=== PATIENT | male | born 1955 | race Caucasian/White ===

== ENCOUNTER 2018-10-31 22:14 | Observation (INO) ==
[2018-10-31 22:39] LABS: Basophils % 0.7 %; Eosinophils # 0.3 K/mcL (0.0-0.6); Eosinophils % 4.7 %; Hematocrit 42.4 % (37.5-50.1); Hemoglobin 15.2 g/dL (12.9-16.9); Immature Granulocytes % 0.2 % (0-4); Lymphocytes # 2.3 K/mcL (0.6-4.6); Lymphocytes % 41.1 %; Mean Corpuscular HGB Conc 35.8 g/dL (31.6-35.5); Mean Corpuscular Hemoglobin 33.3 pg (28.0-33.3); Mean Corpuscular Volume 92.8 fL (83.0-100.0); Mean Platelet Volume 10.2 fL (9.4-12.4); Monocytes # 0.6 K/mcL (0.0-1.3); Monocytes % 10.8 %; Neutrophils # 2.4 K/mcL (1.6-8.9); Platelet Count 152 K/mcL (140-400); Red Blood Count 4.57 M/mcL (4.19-5.50); Red Cell Distribution Width 12.3 % (11.5-14.5); Segmented Neutrophils % 42.5 %; White Blood Count 5.6 K/mcL (4.3-11.1)
[2018-10-31 22:46] LABS: INR 1.1; Prothrombin Time 12.6 Seconds (9.4-12.1)
[2018-10-31 23:04] LABS: BUN/Creatinine Ratio 12 (6-26); Blood Urea Nitrogen 11 mg/dL (8-23); Calcium 9.1 mg/dL (8.6-10.3); Carbon Dioxide 24 mEq/L (23-29); Chloride 104 mEq/L (98-107); Glucose 181 mg/dL (70-105); Osmolality,Calculated 288 (280-300); Potassium 3.5 mEq/L (3.5-5.1); Sodium 137 mEq/L (136-145); Troponin I < 0.03 ng/mL (< 0.04); eGFR For African Americans > 60 (> 60); eGFR For Non-African Americans > 60 (> 60)
--- NOTE | 2018-10-31 23:16 | Emergency Department Note ---
Disposition Clinical Impression: Right sided weakness, Arm paresthesia, right, Paresthesia of right leg Fall Qualifiers: Encounter type: initial encounter Qualified Code(s): W19.XXXA - Unspecified fall, initial encounter Disposition: Admitted As Inpatient Referrals: Max Sun MD [Primary Care Provider] - Forms: ED Satisfaction Letter Time of Disposition: 00:43 General Adult HPI - General Chief complaint: ED Neuro Symptoms/Deficit Stated complaint: LUE Pain, R Side Numb/Tingles, HX CVA Time Seen by Provider: 10/31/18 22:20 Source: patient Mode of arrival: ambulatory Limitations: no limitations Nursing Notes Reviewed: Yes Vital Signs Reviewed: Yes - History of Present Illness HPI Narrative: 63M with PMHx of CVA, HTN, HLD and DM presents emergency Department with left u pper extremity pain and worsening right-sided deficits. Patient states that he had a stroke in 2006 which left him with decreased sensation and motor skills on the entire right side of his body. He states that he occasionally has flares where the sensation and the weakness seemed to worsen. His [id number] and he has been having even worse symptoms since then. He has had left upper extremity pain for the last 3 weeks on and off without known injury. Patient states today his "caught him" with worsening sensation and movement and forced him to come into the emergency department. He currently denies chest pain or shortness of breath, abdominal pain, nausea and vomiting. The patient takes a full strength aspirin daily. Pain Scale: 5 - Related Data Home Medications Medication Instructions Recorded Confirmed Aspirin Buffered 325 mg Tab 09/28/15 Levothyroxine Sodium 09/28/15 Lisinopril 09/28/15 09/28/15 Metformin 09/28/15 Simvastatin 09/28/15 09/28/15 Insulin NPH Human Isophane 50 units SQ BID 10/31/18 10/31/18 [Novolin N] Insulin Regular, Human [Novolin R] 10 units SQ TID 10/31/18 10/31/18 Allergies Allergy/AdvReac Type Severity Reaction Status Date / Time Latex, Natural Rubber Allergy See Verified 10/31/18 23:19 Comments promethazine Allergy Hives Verified 10/31/18 23:19 Sulfa (Sulfonamide Allergy See Verified 10/31/18 23:19 Antibiotics) Comments sulfamethoxazole Allergy See Verified 10/31/18 23:19 [From Bactrim] Comments trimethoprim [From Bactrim] Allergy See Verified 10/31/18 23:19 Comments All systems ED: reviewed and negative except as stated. Review of Systems: As Per HPI Constitutional: Reports: weakness. Denies: fever, chills Eyes: Denies: vision change Cardiovascular: Denies: chest pain, palpitations, dyspnea on exertion Respiratory: Denies: cough, dyspnea, wheezes Gastrointestinal: Denies: abdominal pain, nausea, vomiting Musculoskeletal: Reports: arthralgia (left shoulder pain). Denies: back pain, neck pain Neurological: Reports: weakness, paresthesias. Denies: headache Endocrine: Denies: fatigue Past Medical History - Past Medical History Attestation: Yes The following information was validated with the patient. Source: patient Medical history: Reports: arthritis, CVA, diabetes, hyperlipidemia, hyper tension, TIA Surgical history: Reports: appendectomy, cholecystectomy, herniorrhaphy Psychiatric history: Reports: no psych history - Social History Smoking Status: Never smoker Smokeless Tobacco Status: No Alcohol use: Reports: none Drug use: Reports: none Physical Exam - General Limitations: no limitations General appearance: alert, anxious - Head Head exam: atraumatic, normocephalic - Eye Eye exam: Present: normal appearance, PERRL, EOMI - Chest Chest inspection: Present: normal inspection. Absent: tenderness, rash - Respiratory Respiratory exam: Present: normal lung sounds bilaterally. Absent: wheezes - Cardiovascular Cardiovascular exam: Present: regular rate, normal rhythm - Abdominal Exam Abdominal exam: Present: soft, Non-Tender. Absent: distention, guarding, rebound, rigidity - Neurological Exam Neurological exam: Present: alert, oriented X3, CN II-XII intact, motor sensory deficit (see NIHSS for further detail) - Psychiatric Psychiatric exam: Present: normal affect, normal mood - Skin Skin exam: Present: warm, dry, intact Course Vital Signs Temperature 98.4 F 10/31/18 22:22 Pulse Rate 75 10/31/18 22:22 Respiratory Rate 15 10/31/18 22:22 Blood Pressure 166/97 10/31/18 22:22 O2 Sat by Pulse Oximetry 100 10/31/18 22:22 Temperature 98.4 F 10/31/18 22:22 Pulse Rate 77 11/01/18 00:00 Respiratory Rate 20 11/01/18 00:00 Blood Pressure 144/94 11/01/18 00:00 O2 Sat by Pulse Oximetry 95 11/01/18 00:00 Oxygen Delivery Oxygen Delivery Room Air Medical Decision Making - MDM Narrative Medical decision making narrative: Patient presents with left upper extremity pain and worsening right-sided weakness and sensory changes that have been going on for the past week. We will obtain EKG, basic labs, troponin and do CT imaging of the patient's head. 0001 - patient's EKG was unremarkable. Laboratory did not demonstrate any significant abnormalities. Head CT and chest x-ray did not show any acute ch anges. Patient's family is at bedside and they are concerned as the patient has had significant worsening of his right lower extremity and they have seen him dragging his right leg over the past couple of days. Today the patient fell at the . He does not normally have difficulties with walking and the sons concerned if the patient goes home and falls that his mother will not be able to take care of the patient. Patient also admits to having severely worsening headaches over the past month with a current headache on the right side that he rates an 8 out of 10. Due to the patient's worsening symptoms we will plan on admission for further stroke workup and PT/OT to help with his walking. Patient and family are agreeable with admission at this time. Hospitalist has been paged. 004 - patient has been except hospital by Dr. Ahmadi - Medical Records Medical records reviewed: Yes I reviewed the patient's medical records. - Lab Data Lab results reviewed: Yes I reviewed the patient's lab results. Result diagrams: 10/31/18 22:32 10/31/18 22:32 Lab Results 10/31/18 10/31/18 10/31/18 Range/Units 22:20 22:32 22:32 WBC 5.6 (4.3-11.1) K/mcL RBC 4.57 (4.19-5.50) M/mcL Hgb 15.2 (12.9-16.9) g/dL Hct 42.4 (37.5-50.1) % MCV 92.8 (83.0-100.0) fL MCH 33.3 (28.0-33.3) pg MCHC 35.8 H (31.6-35.5) g/dL RDW 12.3 (11.5-14.5) % Plt Count 152 (140-400) K/mcL MPV 10.2 (9.4-12.4) fL Immature Gran % 0.2 (0-4) % Seg Neutrophils % 42.5 % Lymphocytes % 41.1 % Monocytes % 10.8 % Eosinophils % 4.7 % Basophils % 0.7 % Neutrophils # 2.4 (1.6-8.9) K/mcL Lymphocytes # 2.3 (0.6-4.6) K/mcL Monocytes # 0.6 (0.0-1.3) K/mcL Eosinophils # 0.3 (0.0-0.6) K/mcL Basophils # 0.0 (0.0-0.2) K/mcL PT 12.6 H (9.4-12.1) Seconds INR 1.1 Sodium (136-145) mEq/L Potassium (3.5-5.1) mEq/L Chloride (98-107) mEq/L Carbon Dioxide (23-29) mEq/L BUN (8-23) mg/dL Creatinine (0.70-1.30) mg/dL Est GFR ( Amer) (> 60) Est GFR (Non-Af Amer) (> 60) BUN/Creatinine Ratio (6-26) Glucose (70-105) mg/dL POC Glucose 186 H (70-99) mg/dL Calculated Osmolality (280-300) Calcium (8.6-10.3) mg/dL Troponin I (< 0.04) ng/mL 10/31/18 Range/Units 22:32 WBC (4.3-11.1) K/mcL RBC (4.19-5.50) M/mcL Hgb (12.9-16.9) g/dL Hct (37.5-50.1) % MCV (83.0-100.0) fL MCH (28.0-33.3) pg MCHC (31.6-35.5) g/dL RDW (11.5-14.5) % Plt Count (140-400) K/mcL MPV (9.4-12.4) fL Immature Gran % (0-4) % Seg Neutrophils % % Lymphocytes % % Monocytes % % Eosinophils % % Basophils % % Neutrophils # (1.6-8.9) K/mcL Lymphocytes # (0.6-4.6) K/mcL Monocytes # (0.0-1.3) K/mcL Eosinophils # (0.0-0.6) K/mcL Basophils # (0.0-0.2) K/mcL PT (9.4-12.1) Seconds INR Sodium 137 (136-145) mEq/L Potassium 3.5 (3.5-5.1) mEq/L Chloride 104 (98-107) mEq/L Carbon Dioxide 24 (23-29) mEq/L BUN 11 (8-23) mg/dL Creatinine 0.92 (0.70-1.30) mg/dL Est GFR ( Amer) > 60 (> 60) Est GFR (Non-Af Amer) > 60 (> 60) BUN/Creatinine Ratio 12 (6-26) Glucose 181 H (70-105) mg/dL POC Glucose (70-99) mg/dL Calculated Osmolality 288 (280-300) Calcium 9.1 (8.6-10.3) mg/dL Troponin I < 0.03 (< 0.04) ng/mL - Radiology Data Radiology results reviewed: Yes I reviewed the patient's radiology results. - EKG Data EKG #1 EKG attestation: Yes I reviewed and interpreted this EKG. EKG results narrative: EKG obtained at 2224 on 10/31/2018 Heart rate 81 bpm, MD interval 96, QRS duration 98, QT 385, QTc 447 Sinus rhythm without any ST segment elevations or depressions. Flattening of the T wave in the lateral leads and aVL. These findings are unchanged from previous EKG dated 08/16/2015. NIH Stroke Scale - Level of Consciousness LOC: Alert - LOC Questions LOC Questions: Answers both correctly - LOC Commands LOC Commands: Performs both correctly - Best Gaze Best Gaze: Normal - Visual Visual: No visual loss - Facial Palsy Facial Palsy: Normal - Motor Arms Motor Arm-Left: No drift for 10 seconds Motor Arm-Right: Drift, does NOT hit bed - Motor Legs Motor Leg-Left: No drift for 5 seconds Motor Leg-Right: Drift, does NOT hit bed - Limb Ataxia Limb Ataxia: Present in TWO limbs - Sensory Sensory: Severe loss. Total sensory loss, pt unaware of being touched - Best Language Best Language: No aphasia - Dysarthria Dysarthria: Normal - Extinction and Inattention Extinction and Inattention: Normal - NIHSS Total Score NIHSS Total Score: 6
[2018-10-31] MEDS ORDERED: Prochlorperazine 10 MG/2 ML VIAL IVP STA (23:59)
[2018-10-31] MEDS ORDERED: Ketorolac 15 MG/ML VIAL IVP ONE (23:59)
[2018-10-31] MEDS ORDERED: 0.9 % Sodium Chloride 1,000 ML IVC ONE (23:59)
--- NOTE | 2018-11-01 00:13 | Emergency Department Note ---
Disposition Clinical Impression: Right sided weakness, Arm paresthesia, right, Paresthesia of right leg Fall Qualifiers: Encounter type: initial encounter Qualified Code(s): W19.XXXA - Unspecified fall, initial encounter Disposition: Admitted As Inpatient Condition: Good Referrals: Max Sun MD [Primary Care Provider] - Forms: ED Satisfaction Letter, Work/School Release Time of Disposition: 00:43 General Adult HPI - General Chief complaint: ED Neuro Symptoms/Deficit Stated complaint: LUE Pain, R Side Numb/Tingles, HX CVA Time Seen by Provider: 10/31/18 22:20 Source: patient Mode of arrival: ambulatory Limitations: no limitations Nursing Notes Reviewed: Yes Vital Signs Reviewed: Yes - History of Present Illness Pain Scale: 5 - Related Data Home Medications Medication Instructions Recorded Confirmed Aspirin Buffered 325 mg Tab 325 mg PO DAILY 09/28/15 10/31/18 Levothyroxine Sodium mcg PO DAILY 09/28/15 Lisinopril mg PO DAILY 09/28/15 09/28/15 Metformin 1,000 mg PO BID 09/28/15 10/31/18 Simvastatin 40 mg PO DAILY 09/28/15 10/31/18 Insulin NPH Human Isophane 50 units SQ BID 10/31/18 10/31/18 [Novolin N] Insulin Regular, Human [Novolin R] 10 units SQ TID 10/31/18 10/31/18 Allergies Allergy/AdvReac Type Severity Reaction Status Date / Time Latex, Natural Rubber Allergy See Verified 10/31/18 23:19 Comments promethazine Allergy Hives Verified 10/31/18 23:19 Sulfa (Sulfonamide Allergy See Verified 10/31/18 23:19 Antibiotics) Comments sulfamethoxazole Allergy See Verified 10/31/18 23:19 [From Bactrim] Comments trimethoprim [From Bactrim] Allergy See Verified 10/31/18 23:19 Comments Constitutional: Reports: weakness. Denies: fever, chills Eyes: Denies: vision change Cardiovascular: Denies: chest pain, palpitations, dyspnea on exertion Respiratory: Denies: cough, dyspnea, wheezes Gastrointestinal: Denies: abdominal pain, nausea, vomiting Musculoskeletal: Reports: arthralgia (left shoulder pain). Denies: back pain, neck pain Neurological: Reports: weakness, paresthesias. Denies: headache Endocrine: Denies: fatigue Past Medical History - Past Medical History Medical history: Reports: arthritis, CVA, diabetes, hyperlipidemia, hypertensio n, TIA Surgical history: Reports: appendectomy, cholecystectomy, herniorrhaphy Psychiatric history: Reports: no psych history - Social History Smoking Status: Never smoker Smokeless Tobacco Status: No Alcohol use: Reports: none Drug use: Reports: none Physical Exam - General Limitations: no limitations General appearance: alert, anxious Course Vital Signs Temperature 98.4 F 10/31/18 22:22 Pulse Rate 75 10/31/18 22:22 Respiratory Rate 15 10/31/18 22:22 Blood Pressure 166/97 10/31/18 22:22 O2 Sat by Pulse Oximetry 100 10/31/18 22:22 Temperature 98.4 F 10/31/18 22:22 Pulse Rate 77 11/01/18 00:00 Respiratory Rate 20 11/01/18 00:00 Blood Pressure 144/94 11/01/18 00:00 O2 Sat by Pulse Oximetry 95 11/01/18 00:00 Oxygen Delivery Oxygen Delivery Room Air Medical Decision Making - Medical Records Medical records reviewed: Yes I reviewed the patient's medical records. - Lab Data Lab results reviewed: Yes I reviewed the patient's lab results. Result diagrams: 10/31/18 22:32 10/31/18 22:32 Lab Results 10/31/18 10/31/18 10/31/18 Range/Units 22:20 22:32 22:32 WBC 5.6 (4.3-11.1) K/mcL RBC 4.57 (4.19-5.50) M/mcL Hgb 15.2 (12.9-16.9) g/dL Hct 42.4 (37.5-50.1) % MCV 92.8 (83.0-100.0) fL MCH 33.3 (28.0-33.3) pg MCHC 35.8 H (31.6-35.5) g/dL RDW 12.3 (11.5-14.5) % Plt Count 152 (140-400) K/mcL MPV 10.2 (9.4-12.4) fL Immature Gran % 0.2 (0-4) % Seg Neutrophils % 42.5 % Lymphocytes % 41.1 % Monocytes % 10.8 % Eosinophils % 4.7 % Basophils % 0.7 % Neutrophils # 2.4 (1.6-8.9) K/mcL Lymphocytes # 2.3 (0.6-4.6) K/mcL Monocytes # 0.6 (0.0-1.3) K/mcL Eosinophils # 0.3 (0.0-0.6) K/mcL Basophils # 0.0 (0.0-0.2) K/mcL PT 12.6 H (9.4-12.1) Seconds INR 1.1 Sodium (136-145) mEq/L Potassium (3.5-5.1) mEq/L Chloride (98-107) mEq/L Carbon Dioxide (23-29) mEq/L BUN (8-23) mg/dL Creatinine (0.70-1.30) mg/dL Est GFR ( Amer) (> 60) Est GFR (Non-Af Amer) (> 60) BUN/Creatinine Ratio (6-26) Glucose (70-105) mg/dL POC Glucose 186 H (70-99) mg/dL Calculated Osmolality (280-300) Calcium (8.6-10.3) mg/dL Troponin I (< 0.04) ng/mL 10/31/18 Range/Units 22:32 WBC (4.3-11.1) K/mcL RBC (4.19-5.50) M/mcL Hgb (12.9-16.9) g/dL Hct (37.5-50.1) % MCV (83.0-100.0) fL MCH (28.0-33.3) pg MCHC (31.6-35.5) g/dL RDW (11.5-14.5) % Plt Count (140-400) K/mcL MPV (9.4-12.4) fL Immature Gran % (0-4) % Seg Neutrophils % % Lymphocytes % % Monocytes % % Eosinophils % % Basophils % % Neutrophils # (1.6-8.9) K/mcL Lymphocytes # (0.6-4.6) K/mcL Monocytes # (0.0-1.3) K/mcL Eosinophils # (0.0-0.6) K/mcL Basophils # (0.0-0.2) K/mcL PT (9.4-12.1) Seconds INR Sodium 137 (136-145) mEq/L Potassium 3.5 (3.5-5.1) mEq/L Chloride 104 (98-107) mEq/L Carbon Dioxide 24 (23-29) mEq/L BUN 11 (8-23) mg/dL Creatinine 0.92 (0.70-1.30) mg/dL Est GFR ( Amer) > 60 (> 60) Est GFR (Non-Af Amer) > 60 (> 60) BUN/Creatinine Ratio 12 (6-26) Glucose 181 H (70-105) mg/dL POC Glucose (70-99) mg/dL Calculated Osmolality 288 (280-300) Calcium 9.1 (8.6-10.3) mg/dL Troponin I < 0.03 (< 0.04) ng/mL - Radiology Data Radiology results reviewed: Yes I reviewed the patient's radiology results. Chest X-Ray 10/31/18 22:29 IMPRESSION: Negative portable study. D/ / Yee Lawrence Cha, MD / Yee Lawrence Cha, MD Interpreting Provider: Yee Lawrence Cha, MD Head CT 10/31/18 22:29 IMPRESSION: No acute intracranial abnormality. D/ / Yee Lawrence Cha, MD / Yee Lawrence Cha, MD Interpreting Provider: Yee Lawrence Cha, MD - EKG Data EKG #1 EKG attestation: Yes I reviewed and interpreted this EKG. EKG results narrative: EKG shows a normal sinus rhythm with ventricular rate of 81. No significant ST segment elevation or depression. No arrhythmia or ectopy. No significant change from prior EKG dated 08/16/2015. Attestation Statement - Attestation Attestation: I, Chavo Urias MD, personally evaluated this patient and discussed their management with the resident physician. I reviewed the resident's note and agree with the documented findings, medical decision making, and plan of care. I reviewed the residents documentation and agree with the residents assessment and plan of care. I have personally had face to face time with the patient. I personally supervised and was present for the bourgeois/critical portions of the following procedures completed by the resident: EKG interpretation. 63-year-old male presents to the emergency department with a complaint of increased right sided weakness and numbness over the past several weeks but particularly worse over the past 1 week since his [id number] . He has a history of a CVA 12 years ago with some residual right-sided weakness and numbness. He states this flares up and gets worse intermittently but has never been this bad for this long. He reports he was hiding it from his family but over the past few days they were able to notice that he has had increased difficulty walking and has been dragging his right leg and family reports that he fell today. No injury from the fall. No difficulty with speech or swallowing. He also complains of some pain in his left upper arm intermittently over the past 3 weeks. Some mild intermittent chest discomfort. No chest discomfort at present. On examination patient is a well-developed well-nourished male in no acute distress. He is alert and oriented 3. There is no cyanosis or diaphoresis. Breath sounds are clear and equal bilaterally. Heart regular rate and rhythm. Abdomen is soft and nontender with normal bowel sounds. Patient does have some right sided weakness of the upper and lower extremity. Decreased sensation to light touch of the right upper and lower extremity and right side of the face. He has a coarse intention tremor intermittently on the right which also is not new but worse than usual. EKG shows a normal sinus rhythm with ventricular rate of 81. No significant ST segment elevation or depression. No arrhythmia or ectopy. No significant change from prior EKG dated 08/16/2015. Chest x-ray negative. Head CT shows no acute intracranial abnormality. Labs reviewed and unremarkable. The hospitalist, Dr. Ahmadi, was consulted and accepted admission of the patient.
--- NOTE | 2018-11-01 01:00 | Internal Med History&Physical ---
<Hetal Lopez Jose - Last Filed: 11/01/18 06:31> Date of Encounter: 11/01/18 Time of Encounter: 03:00 Internal Medicine - H&P: HPI Chief complaint: increased R arm weakness History of present illness: Mr. Apple is a 63 year old male with pmh of CVA, HTN, and HLD presents with c/o increased weakness in his left arm and leg. Patient states for the past 3 weeks he has had intermittent headaches and increasing left arm pain and weakness. On interview patient was somnolent and unable to answer all questions. Although patient did state he did still have a headache which was currently a right-sided headache. Patient states today during [id number] stated he was stumbling while walking. Due to his prior history of CVA, and his symptoms of headache and left arm pain, this prompted the visit to the emergency department. Patient was unable to answer further questions, as he repeatedly fell asleep during interview. Past Med Surg Social Fam HX - Past Medical History Source: old records reviewed Medical history: arthritis, CVA, diabetes, hyperlipidemia, hypertension, seizures (Seizure disorder), TIA Psychiatric history: no psych history - Past Surgical History Surgical History: appendectomy, cholecystectomy, herniorrhaphy Additional surgical history: knee sx x3. biopsy neck. CTR bilateral - Social History Smoking Status: Never smoker Smokeless Tobacco Status: No Alcohol use: none Drug use: none - Family History Mother Family Member Ethnicity: Non- Living Status: Still Living Hx Family Cardiac Disorders: Yes Hx Family Respiratory Disorders: No Father Family Member Ethnicity: Non- Age at : 73 Hx Family Cardiac Disorders: Yes Internal Medicine - H&P: Meds Aspirin Buffered 325 mg Tab 325 mg PO DAILY 09/28/15 [History] Levothyroxine Sodium mcg PO DAILY 09/28/15 [History] Lisinopril mg PO DAILY 09/28/15 [History] Metformin 1,000 mg PO BID 09/28/15 [History] Simvastatin 40 mg PO DAILY 09/28/15 [History] Insulin NPH Human Isophane [Novolin N] 50 units SQ BID 10/31/18 [History] Insulin Regular, Human [Novolin R] 10 units SQ TID 10/31/18 [History] Citalopram Hydrobromide [Citalopram HBr] 1 tab PO DAILY 11/01/18 [History] Pantoprazole Sodium [Protonix] 11/01/18 [History] Tamsulosin [Flomax] 0.4 mg PO DAILY 11/01/18 [History] Allergy/AdvReac Type Severity Reaction Status Date / Time Latex, Natural Rubber Allergy See Verified 10/31/18 23:19 Comments promethazine Allergy Hives Verified 10/31/18 23:19 Sulfa (Sulfonamide Allergy See Verified 10/31/18 23:19 Antibiotics) Comments sulfamethoxazole Allergy See Verified 10/31/18 23:19 [From Bactrim] Comments trimethoprim [From Bactrim] Allergy See Verified 10/31/18 23:19 Comments ROS unobtainable: due to mental status All Systems PM: A 10-system review of systems was performed and is negative for pertinent findings except as documented above in the HPI. Review of systems: ROS was unobtainable due to patient's somnolence. - Constitutional Vitals: Temp Pulse Resp BP Pulse Ox 98.4 F 77 20 144/94 95 10/31/18 22:22 11/01/18 00:00 11/01/18 00:00 11/01/18 00:00 11/01/18 00:00 Exam: Gen: Appears stated age, somnolent, no acute distress. Head: atraumatic, normocephalic. ENT: no oropharyngeal erythema, EOMI, PERRLA, mucous membranes moist, Neck: No thyromegaly appreciated. Neck supple no cervical lymphadenopathy. Resp: CTAB, no wheezing, rhonchi, or rhales. CV: RRR, Normal S1 and S2. No murmur, gallops, or rubs. GI/Abdominal exam: bowel sounds throughout, soft, non-tender, non-distended; no hepatosplenomegaly Skin: intact; no rashes, lesions, or bruising. Ext: No cyanosis or edema. pulses +2/4 bilaterally UE and LE. Neuro: sensation decreased in RUE. DTR +2/4 UE b/l. strength: 3/5 RUE, 5/5 LUE unable to assess LE strength/sensation/DTR due to somnolence. Internal Med - H&P Results - Labs CBC & Chem 7: 10/31/18 22:32 10/31/18 22:32 Labs: Short CBC 10/31/18 Range/Units 22:32 WBC 5.6 (4.3-11.1) K/mcL Hgb 15.2 (12.9-16.9) g/dL Hct 42.4 (37.5-50.1) % Plt Count 152 (140-400) K/mcL Neutrophils # 2.4 (1.6-8.9) K/mcL BMP 10/31/18 22:32 Sodium 137 Potassium 3.5 Chloride 104 Carbon Dioxide 24 BUN 11 Creatinine 0.92 Glucose 181 H Calcium 9.1 Cardiac Enzymes 10/31/18 Range/Units 22:32 Troponin I < 0.03 (< 0.04) ng/mL - Impressions ITS Impressions Chest X-Ray 10/31/18 22:29 IMPRESSION: Negative portable study. D/ / Yee Lawrence Cha, MD / Yee Lawrence Cha, MD Interpreting Provider: Yee Lawrence Cha, MD Head CT 10/31/18 22:29 IMPRESSION: No acute intracranial abnormality. D/ / Yee Lawrence Cha, MD / Yee Lawrence Cha, MD Interpreting Provider: Yee Lawrence Cha, MD - Assessment and Plan (1) Right sided weakness Current Visit: Yes Status: Acute Assessment and plan: Patient is a 51-year-old male with history of CVA HTN, HLD who presents to the ED with complaint of worsening right-sided weakness. Patient currently has residual right-sided weakness in right upper extremity and lower extremity due to past CVA. The patient states that currently symptoms are worsening and accompanied by right sided shoulder pain and headache. On presenting to the ED chest x-ray was completed which was negative, head CT showed no acute intracranial abnormalities, EKG showed normal sinus rhythm with ventricular rate of 81, no significant ST elevation or depression, no arrhythmia or ectopy. Which is no significant change from prior EKG dated 08/16/2015. Due to unilateral upper extremity and lower extremity weakness there is concern for CVA recurrence, or possible compression neuropathy from C-spine, lumbar spine. Plan; - Due to patient's history of CVA we will obtain MRI without contrast. If MRI shows abnormalities we will consider obtaining neuro consult and further testing. - PT/OT consult - Telemetry. - Neuro checks every 4 (2) Hypertension Current Visit: Yes Status: Acute Assessment and plan: Due to concerns for possible CVA, we will hold antihypertensives. Allowing for permissive hypertension to the limit of 220/120. Qualifiers: Qualified Code(s): I10 - Essential (primary) hypertension (3) Diabetes Current Visit: Yes Status: Acute Assessment and plan: Hold metformin -Sliding-scale insulin before meals and at bedtime Accu-Cheks before meals and at bedtime Qualifiers: Diabetes mellitus type: type 2 Diabetes mellitus mcfp insulin use: without extermination inspector use Diabetes mellitus complication status: without complication Qualified Code(s): E11.9 - Type 2 diabetes mellitus without complications (4) BPH (benign prostatic hyperplasia) Current Visit: Yes Status: Acute Assessment and plan: Continue Flomax 0.4 mg Qualifiers: Qualified Code(s): N40.0 - Benign prostatic hyperplasia without lower urinary tract symptoms (5) Depression Current Visit: Yes Status: Acute Assessment and plan: Continue home antidepressant medication Qualifiers: Qualified Code(s): F32.9 - Major depressive disorder, single episode, unspecified (6) DVT prophylaxis Current Visit: Yes Status: Acute Assessment and plan: Heparin subcutaneous every 8 - Time Spent With Patient Total time spent is greater than 50% in coordination of care (as documented) at patient's floor/unit and/or counseling patient: <PatrickShivam aguilar - Last Filed: 11/01/18 07:47> Date of Encounter: 11/01/18 Internal Medicine - H&P: HPI History of present illness: Mr. Apple is a 63 year old male All Systems PM: A 10-system review of systems was performed and is negative for pertinent findings except as documented above in the HPI. - Constitutional Vitals: Temp Pulse Resp BP Pulse Ox 97.7 F 59 16 139/82 96 11/01/18 06:54 11/01/18 06:54 11/01/18 06:54 11/01/18 06:54 11/01/18 06:54 Internal Med - H&P Results - Labs CBC & Chem 7: 10/31/18 22:32 11/01/18 05:47 Labs: Short CBC 10/31/18 Range/Units 22:32 WBC 5.6 (4.3-11.1) K/mcL Hgb 15.2 (12.9-16.9) g/dL Hct 42.4 (37.5-50.1) % Plt Count 152 (140-400) K/mcL Neutrophils # 2.4 (1.6-8.9) K/mcL BMP 10/31/18 11/01/18 22:32 05:47 Sodium 137 142 Potassium 3.5 3.6 Chloride 104 107 Carbon Dioxide 24 26 BUN 11 10 Creatinine 0.92 0.91 Glucose 181 H 149 H Calcium 9.1 8.4 L Cardiac Enzymes 10/31/18 11/01/18 Range/Units 22:32 05:47 Troponin I < 0.03 < 0.03 (< 0.04) ng/mL Liver Function 11/01/18 Range/Units 05:47 Total Bilirubin 1.3 H (0.3-1.0) mg/dL AST 17 (13-39) Units/L ALT 17 (7-52) Units/L Alkaline Phosphatase 61 (34-104) Units/L Albumin 3.4 L (3.5-5.7) g/dL - Impressions ITS Impressions Chest X-Ray 10/31/18 22:29 IMPRESSION: Negative portable study. D/ / Yee Lawrence Cha, MD / Yee Lawrence Cha, MD Interpreting Provider: Yee Lawrence Cha, MD Head CT 10/31/18 22:29 IMPRESSION: No acute intracranial abnormality. D/ / Yee Lawrence Cha, MD / Yee Lawrence Cha, MD Interpreting Provider: Yee Lawrence Cha, MD - Time Spent With Patient Total time spent is greater than 50% in coordination of care (as documented) at patient's floor/unit and/or counseling patient: - Attending Attestation I performed a history and physical examination of the patient and discussed their management with the resident. I reviewed the resident's note and agree with the documented plan of care. Patient is a 63-year-old male with a past medical history significant for multiple CVA's who presented to the ED due to reported three-week history of intermittent headaches left upper extremity arm pain and right upper and lower extremity weakness. At the time of my assessment, patient was alert point 3 though very sleepy and would doze off during the history of present illness. Patient appeared to be more concerned with his headaches and left arm pain. He did not appear to endorse any new weakness on the right side of his upper and lower extremity though he has baseline deficits from previous strokes. He does admit to history of falls and per ED report, patient's caught him and forced him to come into the ED for evaluation. Furthermore, Per ED documentation, family concerned as the patient has had significant worsening of his right lower extremity and they have seen him dragging his right leg over the past couple of days. Today the patient fell at the and sons concerned if the patient goes home and falls that his mother will not be able to take care of the patient. Patient does admit to occasional falls but states he is relatively independent with regard to his activities of daily living. Physical exam notable for right-sided weakness as compared to left. However, unclear if this is patient's baseline which he seems to endorse. Patient otherwise reporting to be feeling better in terms of his headache and left arm pain after receiving Toradol in the ED. At this time we will continue neuro checks. We will obtain MRI of the brain to rule out acute CVA. PT/OT for further assessment of patient's mobility and fall risk. Consider neurology consult based on further evaluation.
[2018-11-01] MEDS: *HR* Heparin 5,000 UNIT/ML VIAL SQ SCH ×3 (05:27→21:40)
[2018-11-01] MEDS ORDERED: Dextrose Gel 15 GM/37.5 ML TUBE PO PRN ×2 (06:03)
[2018-11-01] MEDS ORDERED: *HR* Dextrose 50 % in Water (Syg) 50 ML SYRINGE IVP PRN (06:03)
[2018-11-01] MEDS ORDERED: D5% in Water 1,000 ML IVC PRN (06:03)
[2018-11-01 06:34] LABS: INR 1.1; Prothrombin Time 12.2 Seconds (9.4-12.1)
[2018-11-01 06:48] LABS: Alanine Aminotransferase 17 Units/L (7-52); Albumin 3.4 g/dL (3.5-5.7); Albumin/Globulin Ratio 1.4 (1.1-2.2); Alkaline Phosphatase 61 Units/L (34-104); Aspartate Amino Transferase 17 Units/L (13-39); BUN/Creatinine Ratio 11 (6-26); Bilirubin,Total 1.3 mg/dL (0.3-1.0); Blood Urea Nitrogen 10 mg/dL (8-23); Calcium 8.4 mg/dL (8.6-10.3); Carbon Dioxide 26 mEq/L (23-29); Chloride 107 mEq/L (98-107); Chol/HDL Ratio 4.4 (0-4.9); Cholesterol 154 mg/dL (< 200); Globulin 2.4 g/dL (2.4-3.5); Glucose 149 mg/dL (70-105); HDL Cholesterol 35 mg/dL (40-59); LDL Cholesterol,Calculated 104 mg/dL (0-99); Osmolality,Calculated 296 (280-300); Potassium 3.6 mEq/L (3.5-5.1); Sodium 142 mEq/L (136-145); Total Protein 5.8 g/dL (6.4-8.9); Triglycerides 74 mg/dL (< 150); Troponin I < 0.03 ng/mL (< 0.04); eGFR For African Americans > 60 (> 60); eGFR For Non-African Americans > 60 (> 60)
--- NOTE | 2018-11-01 08:31 | Internal Med Progress Note ---
<VishDaniel S - Last Filed: 11/01/18 16:13> Hospitalist Progress Note - Encounter Date of Encounter: 11/01/18 Time of Encounter: 08:31 - Subjective Interval History: Mr. Apple is 63-year-old gentleman past medical history is significant for a prior stroke in 2006 that left residual right deficits in his upper and lower extremities, who came in to the emergency department with complaint of worse right-sided upper and lower extremity deficits, right-sided headache, and left upper extremity pain for the past 3-4 weeks, and chest pain for the past few days. All of these have been insidious in onset. * His right-sided deficits have been noticed by family, who have noted foot dragging and increased instability, including increasing falls. Patient reports that he has not "fallen to the floor", but does admit to several ep isodes of losing his balance and at times stumbling into furniture or the wall. His pre-existing deficit consisted of mild weakness in both extremities, as well as significant paresthesias, with no feeling in his right leg, and constant tingling in his right arm * His headache is described as constant, right-sided, frontal, rated 8 out of 10 last night, which was its worst yet, 3 out of 10 at its best. He describes the pain as a constant stabbing pain, and reports increased blurry vision in his right eye when the headache is severe. * His left upper extremity pain is described as a shooting pain which starts in his upper shoulder near the trapezius and shoots down the anterolateral aspect of his left shoulder stopping at the elbow. * His chest pain was evaluated in the ED, where a troponin and chest x-ray were both negative, and patient reports that the chest discomfort has resolved since his admission last night Pertinent negatives on review of systems include denial of syncope, dyspnea, lower extremity edema, fevers and chills, nausea and vomiting Pertinent positives on review of systems include constipation, black stool, neurological symptoms as described above CT of the head performed last night was negative for any acute intracranial hemorrhage or detectable mass lesions Patient is scheduled for MRI of the head this morning. - Exam Vitals: Temp Pulse Resp BP Pulse Ox 97.7 F 59 16 139/82 96 11/01/18 06:54 11/01/18 06:54 11/01/18 06:54 11/01/18 06:54 11/01/18 06:54 Exam: Gen: Awake and alert, no acute distress, well-nourished, well kempt Head: Normocephalic, atraumatic Eyes: EOMI, no scleral icterus ENT: Mucous membranes moist, no oropharyngeal erythema CV: S1-S2 present, regular at a rate of approximately 75, no murmurs rubs or gallops Pulm: CTAB, not tachypneic, no respiratory distress, no increased work of breathing Abd: Soft, nontender to palpation, obese, nondistended, no rebound or guarding EXT: No lower extremity edema, RUE and RLE muscle strength reduced in comparison to the left. 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 Significant psychosocial stressors are present in his life at this time, these may be contributing to his headaches. (2) Right sided weakness Status: Acute Assessment and Plan: no radiographic evidence for new infarction or neoplastic lesions. MRI findings of cervical spinal stenosis may be contributing to gradual worsening of his prior deficits. Neurology has been consulted, and we will wait for their specific recommendations before initiating any therapy for his weakness. (3) Arm paresthesia, right Status: Chronic Assessment and Plan: Pt states he has constant paresthesias of the right arm since his prior CVA MRIs of head and cervical spine have resulted, and neurology is consulted we will await specific recommendations from the neurologist. (4) Paresthesia of right leg Status: Chronic Assessment and Plan: Patient reports that at baseline he has total paresthesia of the right lower leg. DVT Prophylaxis: sub q heparin - Time Spent with Patient Total time spent is greater than 50% in coordination of care (as documented) at patient's floor/unit and/or counseling patient: Internal Medicine: Result - Labs CBC & Chem 7: 10/31/18 22:32 11/01/18 05:47 Labs: Short CBC 10/31/18 Range/Units 22:32 WBC 5.6 (4.3-11.1) K/mcL Hgb 15.2 (12.9-16.9) g/dL Hct 42.4 (37.5-50.1) % Plt Count 152 (140-400) K/mcL Neutrophils # 2.4 (1.6-8.9) K/mcL BMP 10/31/18 11/01/18 22:32 05:47 Sodium 137 142 Potassium 3.5 3.6 Chloride 104 107 Carbon Dioxide 24 26 BUN 11 10 Creatinine 0.92 0.91 Glucose 181 H 149 H Calcium 9.1 8.4 L Cardiac Enzymes 10/31/18 11/01/18 Range/Units 22:32 05:47 Troponin I < 0.03 < 0.03 (< 0.04) ng/mL Liver Function 11/01/18 Range/Units 05:47 Total Bilirubin 1.3 H (0.3-1.0) mg/dL AST 17 (13-39) Units/L ALT 17 (7-52) Units/L Alkaline Phosphatase 61 (34-104) Units/L Albumin 3.4 L (3.5-5.7) g/dL - ABG Interpretation ABG results: PT/INR, D-dimer PT 12.2 Seconds (9.4-12.1) H 11/01/18 05:47 - Impressions Impressions Chest X-Ray 10/31/18 22:29 IMPRESSION: Negative portable study. D/ / Yee Lawrence Cha, MD / Yee Lawrence Cha, MD Interpreting Provider: Yee Lawrence Cha, MD Head CT 10/31/18 22:29 IMPRESSION: No acute intracranial abnormality. D/ / Yee Lawrence Cha, MD / Yee Lawrence Cha, MD Interpreting Provider: Yee Lawrence Cha, MD Consult Discharge Plan - Plan Instructions: Diabetes Mellitus Type 2 in Adults (DC), Chronic Hypertension (DC), Fall Prevention (DC) Referrals: Max Sun MD [Primary Care Provider] - 11/08/18 1:00 pm (w/ Kirsty Au, SHANNAN) Cricket White MD [Partnered Physician] - 11/20/18 10:30 am Prescriptions: Comp.stocking,Knee,Regular,Med [Truform Compression Stocking] 1 each [facility] ONCE #1 each <Luis Armando Ambrose - Last Filed: 11/03/18 07:55> Hospitalist Progress Note - Encounter Date of Encounter: 11/01/18 - Exam Vitals: Temp Pulse Resp BP Pulse Ox 97.7 F 57 16 134/85 97 11/02/18 07:13 11/02/18 07:13 11/02/18 07:13 11/02/18 07:13 11/02/18 07:13 - Time Spent with Patient Total time spent is greater than 50% in coordination of care (as documented) at patient's floor/unit and/or counseling patient: Internal Medicine: Result - Labs CBC & Chem 7: 11/02/18 05:32 11/02/18 05:32 - ABG Interpretation ABG results: PT/INR, D-dimer PT 12.2 Seconds (9.4-12.1) H 11/01/18 05:47 - Impressions Impressions Brain MRI 11/01/18 02:05 IMPRESSION: Mild chronic small vessel ischemic changes. Remote lacunar infarcts in the left thalamus and right cerebellum. No acute intracranial abnormality. High signal in the distal left vertebral artery which could represent very slow flow or occlusion of the vessel. MRA of the neck/intracranial circulation could better evaluate the vessels if indicated. D/ / 11/01/2018 10:38:18 Nusrat Willingham MD / [facility] Interpreting Provider: Nusrat Willingham MD - Attending Attestation Mr Apple was admitted earlier this AM for possible CVA Exam Alert Comfortable Heart reg No wheeze Agree with assessment and plan as above. <Daniel Wahl S - Last Filed: 11/01/18 16:13> (1) Headache Qualifiers: Headache type: tension-type Headache chronicity pattern: chronic headache Intractability: intractable Qualified Code(s): G44.221 - Chronic tension-type headache, intractable
[2018-11-01] MEDS: Insulin LISPRO 300 UNITS/3 ML VIAL SQ SCH ×3 (08:48→16:26)
[2018-11-01 09:46] LABS: Estimated Average Glucose 206 mg/dl
--- NOTE | 2018-11-01 14:09 | Neurology - Consult Note ---
Date of Encounter: 11/01/18 Time of Encounter: 14:45 Assessment and Plan (1) Headache Current Visit: Yes Status: Suspected - Patient reports BARRAZA in the right temporal area x 4 months - Constant, with some vision changes and sinus pressure/congestion - Tender to palpation to temporal region as well as neck. Worse with flexion - He has tried OTC tylenol with minimal relief - Etiology is unclear at this time, however I do suspect that this may be related to tension type BARRAZA - MRI of the neck shows chronic changes with severe spinal stenosis at C3-C4 wh ich would explain his left arm pain - He also reports vision blurriness with some improvement with eye drops Plan - Recommend supportive care for now - Will also order CRP and ESR to rule out GCA - May also consider sinus etiology vs less likely cluster/migraine - He does follow with pain management as outpatient for his arm pain/ injection Qualifiers: Headache type: tension-type Headache chronicity pattern: chronic headache Intractability: intractable Qualified Code(s): G44.221 - Chronic tension-type headache, intractable (2) CVA (cerebral vascular accident) Current Visit: Yes Status: Acute - Per patient history - 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 Received TPA at that time - MRI in 2014 shows cortex stroke, possibly embolic - On home aspirin, no other AC or antiplatelet Plan - Does not appear to be acute in nature or cause of patient's BARRAZA, increased weakness. - Will obtain carotid US as this has not been completed previously - Will continue to follow with you. Qualifiers: CVA mechanism: occlusion Precerebral and cerebral artery: vertebral artery Laterality of affected vessel: left Qualified Code(s): I63.212 - Cerebral infarction due to unspecified occlusion or stenosis of left vertebral artery (3) Right sided weakness Current Visit: Yes Status: Acute - Patient reports chronic weakness following his CVA as above - Unsure if this weakness is worsened from his baseline - Do not suspect further stroke at this time given MRI results as above (4) Seizure Current Visit: Yes Status: Chronic - Chronic reported history following stroke - No AEDs - would likely benefit starting medication as outpatient History of Present Illness Chief complaint: Headache, left arm pain HPI: Mr. Apple is a 63 year old male with past medical history of hypertension, hyperlipidemia, seizures, dm2 and multiple CVAs who presents the emergency department on 11/01/18 with complaint of headaches, left arm pain and increased weakness. Patient states that he has been feeling these symptoms for approximately the past 4 months and they have been progressively nonchanging/possibly worsening. His headache is located on the right frontal side with constant pressure sensation. He does admit to associated symptoms of dry eyes, photophobia, nasal congestion, blurred vision. He states the pain is nearly constant with no exacerbating or relieving symptoms. He states that his left arm pain is located in the upper arm and he again is constant with worsening with movement. He denies any distal symptoms as well as no numbness/tingling in that area. He does have residual right-sided weakness following his CVA in 2006 with multiple TIAs since then. He reports that his weakness may be slightly worse however it is difficult to determine as he does not pay close attention to this. 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 He is on aspirin only. Family also reports that he does have a intention tremor on the right side ever since his stroke but believes that this may be worsening. Family states that it is normally worse when he is feeling sick.He has no sick contacts, travel, insect bites. Upon presentation to the emergency room, vital signs were significant for a blood pressure of 166/97. Laboratory results are grossly unremarkable. Imaging thus far shows a negative chest x-ray, head CT with no acute intracranial abnormality. Due to his history of present illness as well as history of strokes, brain and cervical spine MRI were both obtained. There is no evidence of acute stroke on these however did note mild chronic small vessel ischemic changes, remote lacunar infarcts in the left thalamus and right cerebellum. Also noted was a left vertebral artery possible slowing of flow versus occlusion. At time of my interview, patient still endorses a headache on the right side. H e states his arm pain is also present. He denies any other review of systems outside of his chronic issues. Family is present at bedside who contribute to story and questions were answered. Past medical history: As above Past surgical history: Appendectomy, cholecystectomy, hernia repair, orthopedic Social history: Denies tobacco, alcohol, drug use Fhx: cardiac disease in parents Past Med Surg Social Fam HX - Past Medical History Medical history: arthritis, CVA, diabetes, hyperlipidemia, hypertension, seizures (Seizure disorder), TIA Psychiatric history: no psych history - Past Surgical History Surgical History: appendectomy, cholecystectomy, herniorrhaphy Additional surgical history: knee sx x3. biopsy neck. CTR bilateral - Social History Smoking Status: Never smoker Smokeless Tobacco Status: No Alcohol use: none Drug use: none - Family History Mother Family Member Ethnicity: Non- Living Status: Still Living Hx Family Cardiac Disorders: Yes Hx Family Respiratory Disorders: No Father Family Member Ethnicity: Non- Age at : 73 Hx Family Cardiac Disorders: Yes Medications and Allergies Aspirin Buffered 325 mg Tab 325 mg PO DAILY 09/28/15 [History] Levothyroxine Sodium mcg PO DAILY 09/28/15 [History] Lisinopril mg PO DAILY 09/28/15 [History] Metformin 1,000 mg PO BID 09/28/15 [History] Simvastatin 40 mg PO DAILY 09/28/15 [History] Insulin NPH Human Isophane [Novolin N] 50 units SQ BID 10/31/18 [History] Insulin Regular, Human [Novolin R] 10 units SQ TID 10/31/18 [History] Citalopram Hydrobromide [Citalopram HBr] 1 tab PO DAILY 11/01/18 [History] Pantoprazole Sodium [Protonix] 11/01/18 [History] Tamsulosin [Flomax] 0.4 mg PO DAILY 11/01/18 [History] Allergy/AdvReac Type Severity Reaction Status Date / Time Latex, Natural Rubber Allergy See Verified 10/31/18 23:19 Comments promethazine Allergy Hives Verified 10/31/18 23:19 Sulfa (Sulfonamide Allergy See Verified 10/31/18 23:19 Antibiotics) Comments sulfamethoxazole Allergy See Verified 10/31/18 23:19 [From Bactrim] Comments trimethoprim [From Bactrim] Allergy See Verified 10/31/18 23:19 Comments All Systems: The remainder of the systems were reviewed and are negative Review of Systems: - Constitutional: Denies fevers, chills, weight loss, generalized fatigue - Head/Neck: Denies BARRAZA, neck stiffness - EENT: Admits to blurred vision, Denies tinnitus, auditory changes, rhinorrhea, congestion, sore throat, dysphagia - CVS: Denies chest pain, palpitations, BYERS - Pulm: Denies SOB, cough, - GI: Denies abdominal pain, nausea, vomiting - MSK: Admits to left arm pain, muscle weakness on right - Skin: Denies rashes, ulcers, color changes, - Neuro: Admits to BARRAZA, decreased sensation on right Physical Examination - Vital Signs Vital Signs: Initial Vital Signs Temp Pulse Resp BP Pulse Ox 98.4 F 75 15 166/97 100 10/31/18 22:22 10/31/18 22:22 10/31/18 22:22 10/31/18 22:22 10/31/18 22:22 - Constitutional General appearance: comfortable - Neurologic Motor examination - right side: 2/5: deltoids, biceps, triceps, 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: 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, hip flexors, tibialis Anterior, quadriceps, toe extension (EHL), plantarflexion Motor examination - left side: 5/5: deltoids, biceps, triceps, hip flexors, 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, quadriceps, tibialis Anterior, toe extension (EHL), plantarflexion Detailed sensory examination: other (decreased light touch and sensation on right UE, LE, and face) Reflexes: Biceps: 2+, Brachioradialis: 2+, Patella: 2+ Mental Status Examination: awake, alert, oriented to person, oriented to place, oriented to time, follows commands appropriately, answers questions appropr iately, no agnosia, no aphasia, no aproxia Cranial nerve examination: PERRL, EOMI, sensory to face intact (decreaed on right), no facial asymmetry is present, no dysarthria, hearing is intact symmetrically, flexes SCM and trapezius muscles symmetrically with full power (mildly weaker on right), tongue protrudes midline, no atrophy or facial fasiculations present Cerebellar examination: performs finger to nose and heel to fischer symmetrically without ataxia (intention tremor on right that changes right side) Tremor: right upper extremity Results - Laboratory Findings CBC and BMP: 10/31/18 22:32 11/01/18 05:47 Abnormal lab findings: Abnormal lab results MCHC 35.8 g/dL (31.6-35.5) H 10/31/18 22:32 PT 12.2 Seconds (9.4-12.1) H 11/01/18 05:47 Glucose 149 mg/dL (70-105) H 11/01/18 05:47 POC Glucose 186 mg/dL (70-99) H 10/31/18 22:20 Hemoglobin A1c 8.8 % (-5.6) H 11/01/18 05:47 Calcium 8.4 mg/dL (8.6-10.3) L 11/01/18 05:47 Total Bilirubin 1.3 mg/dL (0.3-1.0) H 11/01/18 05:47 Serum Total Protein 5.8 g/dL (6.4-8.9) L 11/01/18 05:47 Albumin 3.4 g/dL (3.5-5.7) L 11/01/18 05:47 LDL Cholesterol, Calc 104 mg/dL (0-99) H 11/01/18 05:47 HDL Cholesterol 35 mg/dL (40-59) L 11/01/18 05:47 Consult Discharge Plan - Plan Referrals: Max Sun MD [Primary Care Provider] -
--- NOTE | 2018-11-01 14:43 | Electrocardiograph Report ---
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
[2018-11-01 15:40] LABS: C-Reactive Protein < 5 mg/L (Less than 10)
[2018-11-01] MEDS: Acetaminophen 325 MG TABLET PO PRN (16:28)
[2018-11-01] MEDS ORDERED: *HR* HYDROcodone/Acet 5/325 mg TABLET PO ONE (21:40)
[2018-11-02 01:06] LABS: Bilirubin,Urine Negative (Negative); Blood,Urine Negative (Negative); Clarity,Urine Clear (Clear); Color,Urine Yellow (Yellow); Glucose,Urine (UA) Normal (Normal); Ketones,Urine Negative (Negative); Leukocyte Esterase,Urine Negative (Negative); Nitrite,Urine Negative (Negative); Protein,Urine Negative (Neg-Trace); Specific Gravity,Urine 1.014 (1.010-1.025); Urobilinogen,Urine Normal (Normal)
[2018-11-02] MEDS: Acetaminophen 325 MG TABLET PO PRN ×2 (04:38→10:59)
[2018-11-02] MEDS: *HR* Heparin 5,000 UNIT/ML VIAL SQ SCH ×2 (05:50→13:37)
[2018-11-02 05:54] LABS: Basophils % 0.9 %; Eosinophils # 0.3 K/mcL (0.0-0.6); Eosinophils % 5.8 %; Hematocrit 42.6 % (37.5-50.1); Hemoglobin 14.6 g/dL (12.9-16.9); Immature Granulocytes % 0.5 % (0-4); Lymphocytes # 1.8 K/mcL (0.6-4.6); Lymphocytes % 42.8 %; Mean Corpuscular HGB Conc 34.3 g/dL (31.6-35.5); Mean Corpuscular Hemoglobin 33.1 pg (28.0-33.3); Mean Corpuscular Volume 96.6 fL (83.0-100.0); Mean Platelet Volume 10.4 fL (9.4-12.4); Monocytes # 0.4 K/mcL (0.0-1.3); Monocytes % 8.6 %; Neutrophils # 1.8 K/mcL (1.6-8.9); Platelet Count 119 K/mcL (140-400); Red Blood Count 4.41 M/mcL (4.19-5.50); Red Cell Distribution Width 12.4 % (11.5-14.5); Segmented Neutrophils % 41.4 %; White Blood Count 4.3 K/mcL (4.3-11.1)
[2018-11-02 06:12] LABS: BUN/Creatinine Ratio 16 (6-26); Blood Urea Nitrogen 13 mg/dL (8-23); Calcium 8.9 mg/dL (8.6-10.3); Carbon Dioxide 25 mEq/L (23-29); Chloride 104 mEq/L (98-107); Glucose 161 mg/dL (70-105); Osmolality,Calculated 290 (280-300); Potassium 3.8 mEq/L (3.5-5.1); Sodium 138 mEq/L (136-145); eGFR For African Americans > 60 (> 60); eGFR For Non-African Americans > 60 (> 60)
[2018-11-02 07:18] VITALS: BP 134/85
[2018-11-02] MEDS: Insulin LISPRO 300 UNITS/3 ML VIAL SQ SCH ×2 (07:41→11:35)
--- NOTE | 2018-11-02 08:29 | Neurology Progress Note ---
Date of Encounter: 11/02/18 Time of Encounter: 08:30 Assessment and Plan (1) Headache Current Visit: Yes Status: Suspected - Patient reports BARRAZA in the right temporal area x 4 months - Constant, with some vision changes and sinus pressure/congestion - Tender to palpation to temporal region as well as neck. Worse with flexion - He has tried OTC tylenol with minimal relief - CRP and ESR relatively unremarkable. - Etiology is unclear at this time, however I do suspect that this may be related to tension type BARRAZA vs hemicrania continua - MRI of the neck shows chronic changes with severe spinal stenosis at C3-C4 which would explain his left arm pain - MRI of the head shows no acute changes, previous stroke identified. - He also reports vision blurriness with some improvement with eye drops Plan - Recommend supportive care. Patient reports improvement with tylenol - May also consider sinus etiology vs less likely cluster/migraine - He does follow with pain management as outpatient for his arm pain/ injection - He is requesting a follow up appointment with neurology as outpatient - Neurology will sign off at this time. Please reconsult as needed. Thank you for allowing us to participate in Mr. Apple's care Qualifiers: Headache type: tension-type Headache chronicity pattern: chronic headache Intractability: intractable Qualified Code(s): G44.221 - Chronic tension-type headache, intractable (2) CVA (cerebral vascular accident) Current Visit: Yes Status: Acute - Per patient history - Stroke to the cerebellum and left thalamus in 2006 with multiple TIAs fo llowing - He reports right sided paresthesias and weakness following - Unclear if this is increased weakness from baseline - MRI this visit of the head and neck does not show any acute lesions or strokes - MRI in 2006 shows cva in thalamus and cerebellum consistent with symptoms. Received TPA at that time - MRI in 2014 shows cortex stroke, possibly embolic - Preliminary carotid US appears normal. - On home aspirin, no other AC or antiplatelet Plan - Does not appear to be acute in nature or cause of patient's BARRAZA, increased weakness. - Continue aspirin Qualifiers: CVA mechanism: occlusion Precerebral and cerebral artery: vertebral artery Laterality of affected vessel: left Qualified Code(s): I63.212 - Cerebral infarction due to unspecified occlusion or stenosis of left vertebral artery (3) Right sided weakness Current Visit: Yes Status: Acute - Patient reports chronic weakness following his CVA as above - Unsure if this weakness is worsened from his baseline - Do not suspect further stroke at this time given MRI results as above (4) Seizure Current Visit: Yes Status: Chronic - Chronic reported history following stroke - No AEDs - would likely benefit starting medication as outpatient Subjective Principal diagnosis: Headache Interval history: Patient was seen and examined at bedside this morning. He states that his headache is a little better, maybe a 3/10. His arm pain continues and weakness is about the same. Overall he thinks he is improving. He was given tylenol for his pain which did seem to help. We discussed his lab and MRI results. No overnight events. Objective - Constitutional Vitals: Temp Pulse Resp BP Pulse Ox 97.7 F 57 16 134/85 97 11/02/18 07:13 11/02/18 07:13 11/02/18 07:13 11/02/18 07:13 11/02/18 07:13 General appearance: Present: cooperative, A&O X 3, pleasant, no acute distress - Neurological Exam Sensorimotor examination: Present: intact Motor examination - right side: 3/5: deltoids, biceps, triceps, hip flexors, tibialis Anterior, quadriceps, toe extension (EHL), plantarflexion, 4/5: punch box tender Motor examination - left side: 4/5: quadriceps, tibialis Anterior, 5/5: deltoids, biceps, triceps, hip flexors, punch box tender, toe extension (EHL), plantarflexion Sensation intact: Present: other (decreased light touch and sensation on right UE, LE, and face) Reflexes: Biceps: 2+, Brachioradialis: 2+, Patella: 1+ (decreased on left) Mental Status Examination: Present: awake, alert, oriented to person, oriented to place, oriented to time, follows commands appropriately, answers questions appropriately, no agnosia, no aphasia, no aproxia Cranial nerve examination: Present: PERRL, EOMI, sensory to face intact (decreaed on right), no facial asymmetry is present, no dysarthria, hearing is intact symmetrically, flexes SCM and trapezius muscles symmetrically with full power (mildly weaker on right), tongue protrudes midline, no atrophy or facial fasiculations present Cerebellar examination: Present: performs finger to nose and heel to fischer symmetrically without ataxia (intention tremor on right that changes right side) Tremor: right upper extremity Results - Laboratory Findings CBC and BMP: 11/02/18 05:32 11/02/18 05:32 Abnormal lab findings: Abnormal lab results MCHC 35.8 g/dL (31.6-35.5) H 10/31/18 22:32 Plt Count 119 K/mcL (140-400) L 11/02/18 05:32 ESR 16 mm/hr (0-10) H 11/01/18 15:43 PT 12.2 Seconds (9.4-12.1) H 11/01/18 05:47 Glucose 161 mg/dL (70-105) H 11/02/18 05:32 POC Glucose 152 mg/dL (70-99) H 11/02/18 03:16 Hemoglobin A1c 8.8 % (-5.6) H 11/01/18 05:47 Calcium 8.4 mg/dL (8.6-10.3) L 11/01/18 05:47 Total Bilirubin 1.3 mg/dL (0.3-1.0) H 11/01/18 05:47 Serum Total Protein 5.8 g/dL (6.4-8.9) L 11/01/18 05:47 Albumin 3.4 g/dL (3.5-5.7) L 11/01/18 05:47 LDL Cholesterol, Calc 104 mg/dL (0-99) H 11/01/18 05:47 HDL Cholesterol 35 mg/dL (40-59) L 11/01/18 05:47 Consult Discharge Plan - Plan Referrals: Max Sun MD [Primary Care Provider] - Cricket White MD [Partnered Physician] -
--- NOTE | 2018-11-02 08:38 | Internal Med Progress Note ---
Hospitalist Progress Note - Encounter Date of Encounter: 11/02/18 Time of Encounter: 08:37 - Exam Vitals: Temp Pulse Resp BP Pulse Ox 97.7 F 57 16 134/85 97 11/02/18 07:13 11/02/18 07:13 11/02/18 07:13 11/02/18 07:13 11/02/18 07:13 - Assessment and Plan (1) Headache Current Visit: Yes Status: Suspected (2) Right sided weakness Current Visit: Yes Status: Acute (3) Arm paresthesia, right Current Visit: Yes Status: Chronic (4) Paresthesia of right leg Current Visit: Yes Status: Chronic - Time Spent with Patient Total time spent is greater than 50% in coordination of care (as documented) at patient's floor/unit and/or counseling patient: Internal Medicine: Result - Labs CBC & Chem 7: 11/02/18 05:32 11/02/18 05:32 Labs: Short CBC 11/02/18 Range/Units 05:32 WBC 4.3 (4.3-11.1) K/mcL Hgb 14.6 (12.9-16.9) g/dL Hct 42.6 (37.5-50.1) % Plt Count 119 L (140-400) K/mcL Neutrophils # 1.8 (1.6-8.9) K/mcL BMP 11/01/18 11/02/18 05:47 05:32 Sodium 142 138 Potassium 3.6 3.8 Chloride 107 104 Carbon Dioxide 26 25 BUN 10 13 Creatinine 0.91 0.83 Glucose 149 H 161 H Calcium 8.4 L 8.9 Cardiac Enzymes 11/01/18 Range/Units 05:47 Troponin I < 0.03 (< 0.04) ng/mL Liver Function 11/01/18 Range/Units 05:47 Total Bilirubin 1.3 H (0.3-1.0) mg/dL AST 17 (13-39) Units/L ALT 17 (7-52) Units/L Alkaline Phosphatase 61 (34-104) Units/L Albumin 3.4 L (3.5-5.7) g/dL Urine 11/02/18 Range/Units 00:55 Urine Color Yellow (Yellow) Urine Clarity Clear (Clear) Urine pH 6.0 (5.0-8.0) pH Units Ur Specific [place] 1.014 (1.010-1.025) Urine Protein Negative (Neg-Trace) mg/dL Urine Glucose (UA) Normal (Normal) mg/dL - ABG Interpretation ABG results: PT/INR, D-dimer PT 12.2 Seconds (9.4-12.1) H 11/01/18 05:47 - Impressions Impressions Brain MRI 11/01/18 02:05 IMPRESSION: Mild chronic small vessel ischemic changes. Remote lacunar infarcts in the left thalamus and right cerebellum. No acute intracranial abnormality. High signal in the distal left vertebral artery which could represent very slow flow or occlusion of the vessel. MRA of the neck/intracranial circulation could better evaluate the vessels if indicated. D/ / 11/01/2018 10:38:18 Nusrat Willingham MD / michaela Interpreting Provider: Nusrat Willingham MD Cervical Spine MRI 11/01/18 11:10 IMPRESSION: Motion degraded study. Multilevel degenerative changes of the cervical spine. There is mild spinal canal stenosis at C3-C4 and C6-C7. There is severe left neural foraminal stenosis at C3-C4. D/ / 11/01/2018 12:55:29 Bia Mendez MD / michaela Interpreting Provider: Bia Mendez MD Consult Discharge Plan - Plan Referrals: Max Sun MD [Primary Care Provider] - (1) Headache Qualifiers: Headache type: tension-type Headache chronicity pattern: chronic headache Intractability: intractable Qualified Code(s): G44.221 - Chronic tension-type headache, intractable
--- NOTE | 2018-11-02 10:37 | Discharge Summary ---
<Daniel Wahl S - Last Filed: 11/02/18 13:49> - NOTES TO OUTPATIENT PROVIDER Notes to Outpatient Provider: Mr. Apple was admitted to the hospital with concern for worsening right-sided deficits. Imaging revealed no intracranial abnormalities, but did show some degenerative changes in the cervical spine. No significant changes to his medication regimen were made, and he has follow-up arranged with neurology for the degenerative changes in the cervical spine. We did discuss chronic right calf pain that he gets while at rest, the patient will be sent with prescription for compression stocking eval and fitting Date of Encounter: 11/02/18 Time of Encounter: 10:34 - Discharge Diagnosis (1) Headache Priority: Secondary Status: Resolved Assessment and Plan: Neurology evaluation revealed these to be likely tension type headaches, possibly with some component of abnormal migraine. They responded well to rest and Tylenol, and Tylenol will be continued outpatient for headaches Qualifiers: Headache type: tension-type Headache chronicity pattern: chronic headache Intractability: intractable Qualified Code(s): G44.221 - Chronic tension-type headache, intractable (2) Right sided weakness Priority: Secondary Status: Acute Assessment and Plan: Objective evaluations of his neuromuscular function did not reveal significant changes during the course of his hospital stay, however family states that he has been seeming weaker over the course of several weeks to months, specifically citing increased dragging of the right foot that has led to near falls. I discussed with the patient's morning his need to use a walker at all times on discharge, he is expressed understanding of the safety risk of not using it. 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 Neuro follow-up established as stated above, may reassess at that time (4) Paresthesia of right leg Priority: Secondary Status: Chronic Assessment and Plan: Patient's baseline is total anesthesia of the left leg, and this was unchanged his hospital stay. Discussed with the patient today chronic right calf cramping pain present at rest, will discharge him with a prescription to be fitted for compression stockings Hospital course: Mr. Apple is a 63 year old male who presented with concern for worsening right- sided deficits, headache and left upper extremity pain for the last several months. Radiographic investigation found no intracranial abnormalities, however did identify degenerative changes in the cervical spinal cord that are likely to be the source of the patient's left arm pain. The patient's vital signs remained relatively stable throughout the course of his stay, requiring no intervention outside of continuation of his home medications. Serial physical exams and daily lab draws did not reveal any progressing pathological physical or laboratory findings. In consultation with neurology, we believe patient is safe to be discharged home to self-care at this time. He has outpatient follow- up scheduled with neurology for further investigation of his degenerative spinal changes. - Time Spent with Patient Total time spent providing and/or coordinating discharge services: - Discharge Medications Prescriptions: New Comp.stocking,Knee,Regular,Med [Truform Compression Stocking] 1 each MC ONCE #1 each Continued Aspirin [Ecotrin] 325 mg PO DAILY Baclofen 20 mg PO TID Citalopram Hydrobromide [Citalopram HBr] 40 mg PO DAILY Insulin NPH Human Isophane [Novolin N] 50 unit SQ BID Insulin Regular, Human [Novolin R] 12 unit SQ TID Levothyroxine Sodium 75 mcg PO DAILY Metformin HCl [Glucophage Xr] 1,000 mg PO BID Pantoprazole Sodium [Protonix] 40 mg PO DAILY Ranitidine HCl [Acid Telephone Service Adviser] 150 mg PO TID Simvastatin [Zocor] 40 mg PO HS Tamsulosin [Flomax] 0.4 mg PO DAILY Home Medications: Aspirin [Ecotrin] 325 mg PO DAILY 11/02/18 [History] Baclofen 20 mg PO TID 11/02/18 [History] Citalopram Hydrobromide [Citalopram HBr] 40 mg PO DAILY 11/02/18 [History] Comp.stocking,Knee,Regular,Med [Truform Compression Stocking] 1 each MC ONCE #1 each 11/02/18 [Rx] Insulin NPH Human Isophane [Novolin N] 50 unit SQ BID 11/02/18 [History] Insulin Regular, Human [Novolin R] 12 unit SQ TID 11/02/18 [History] Levothyroxine Sodium 75 mcg PO DAILY 11/02/18 [History] Metformin HCl [Glucophage Xr] 1,000 mg PO BID 11/02/18 [History] Pantoprazole Sodium [Protonix] 40 mg PO DAILY 11/02/18 [History] Ranitidine HCl [Acid Telephone Service Adviser] 150 mg PO TID 11/02/18 [History] Simvastatin [Zocor] 40 mg PO HS 11/02/18 [History] Tamsulosin [Flomax] 0.4 mg PO DAILY 11/02/18 [History] Allergies/Adverse Reactions: Allergy/AdvReac Type Severity Reaction Status Date / Time Latex, Natural Rubber Allergy See Verified 11/02/18 07:51 Comments promethazine Allergy Hives Verified 11/02/18 07:51 Sulfa (Sulfonamide Allergy See Verified 11/02/18 07:51 Antibiotics) Comments sulfamethoxazole Allergy See Verified 11/02/18 07:51 [From Bactrim] Comments trimethoprim [From Bactrim] Allergy See Verified 11/02/18 07:51 Comments Date of admission: 11/01/18 00:58 Primary care physician: Max Sun MD Consults: 11/01/18 02:05 Consult to Occupational Therapy [CONS] Routine Comment: Evaluate, develop and implement POC Reason for Consult: weakness in LE Does patient have active BEDREST order?: No Is patient medically & hemodynamically stable?: Yes Patient assessed for mobility or mobilized this visit?: No Consult to Physical Therapy [CONS] Routine Comment: Evaluate, develop and implement POC Reason for Consult: weakness in LE Does patient have active BEDREST order?: No Is patient medically & hemodynamically stable?: Yes Patient assessed for mobility or mobilized this visit?: No Consult to Director Of Strategic Initiatives [CONS] Routine Reason for SW Consult: weakness 11/01/18 14:10 Consult to Neurology [CONS] Routine Consulting Provider: [facility] Reason for Consult: worsening chronic right deficits, new left UE pain, acute right headache, CT head and MRI Head without acute abnormalities, MRI neck pending Time Notified: 14:12 Call Completed: Yes Discharging clinician: Daniel Wahl Anticipated date of discharge: 11/02/18 - Constitutional Vitals: Temp Pulse Resp BP Pulse Ox 97.7 F 57 16 134/85 97 11/02/18 07:13 11/02/18 07:13 11/02/18 07:13 11/02/18 07:13 11/02/18 07:13 Exam: Gen: Awake and alert, no acute distress, well-nourished, well kempt Head: Normocephalic, atraumatic Eyes: EOMI, no scleral icterus ENT: Mucous membranes moist, no oropharyngeal erythema CV: S1-S2 present, regular rate, no murmurs rubs or gallops Pulm: CTAB, not tachypneic, no respiratory distress, no increased work of breathing Abd: Soft, nontender to palpation, obese, nondistended, no rebound or guarding EXT: No lower extremity edema, RUE and RLE muscle strength reduced in comparison to the left. no distal cyanosis or pallor. very mild tenderness to palpation of the distal right calf, with no corresponding edema Skin: Warm, dry, intact, no rashes or lesions noted Neuro: Cranial nerves II-XII grossly intact, sensation decreased RUE and RLE Psych: Pt Answers questions with intact judgement, appropriate insight, clear speech, and linear thought. desires to be d/c home - Patient Status Disposition: Home, Self-Care Condition: Fair Functional capacity at discharge: uses cane/walker Overall status at discharge: patient is back to baseline - Discharge Instructions Instructions: Diabetes Mellitus Type 2 in Adults (DC), Chronic Hypertension (DC), Fall Prevention (DC) Follow Up With: Max Sun MD [Primary Care Provider] - 11/08/18 1:00 pm (w/ Kirsty Au CNP) Cricket White MD [Partnered Physician] - 11/20/18 10:30 am - Diet and Activity Activity: ambulate only with your walker Diet: advance to your usual diet <Luis Armando Ambrose - Last Filed: 11/02/18 18:29> Date of Encounter: 11/02/18 Hospital course: Mr. Apple is a 63 year old male - Time Spent with Patient Total time spent providing and/or coordinating discharge services: Date of admission: 11/01/18 00:58 Primary care physician: Max Sun MD Consults: 11/01/18 02:05 Consult to Occupational Therapy [CONS] Routine Comment: Evaluate, develop and implement POC Reason for Consult: weakness in LE Does patient have active BEDREST order?: No Is patient medically & hemodynamically stable?: Yes Patient assessed for mobility or mobilized this visit?: No Consult to Physical Therapy [CONS] Routine Comment: Evaluate, develop and implement POC Reason for Consult: weakness in LE Does patient have active BEDREST order?: No Is patient medically & hemodynamically stable?: Yes Patient assessed for mobility or mobilized this visit?: No Consult to Director Of Strategic Initiatives [CONS] Routine Reason for SW Consult: weakness 11/01/18 14:10 Consult to Neurology [CONS] Routine Consulting Provider: [facility] Reason for Consult: worsening chronic right deficits, new left UE pain, acute right headache, CT head and MRI Head without acute abnormalities, MRI neck pending Time Notified: 14:12 Call Completed: Yes - Constitutional Vitals: Temp Pulse Resp BP Pulse Ox 97.7 F 57 16 134/85 97 11/02/18 07:13 11/02/18 07:13 11/02/18 07:13 11/02/18 07:13 11/02/18 07:13 - Attending Attestation I examined this patient and my medical decision-making was reviewed with the Resident Physician on 11/02/18. I agree with the documented findings, disposition and treatment plan as described except to the extent set forth below. Mr Apple has been hospitalized for concern for TIA. He is now baseline and afebrile. He is ready for discharge home. Exam: Alert. Comfortable EOMI. NC. Mucus membranes dry. Heart not tachy. Plan D/C home today. D/c time 32min
--- NOTE | 2018-11-02 20:00 | Electrocardiograph Report ---
[address] [id number] Test Date: 2018-11-01 Pat Name: Chavo Apple Department: 111 Room: 2NE18 Gender: M [employer]: : [id number] Requested By: [id number] Order Number: [id number] Reading MD: Josué Chaudhary Measurements Intervals [place] Rate: 55 P: 52 GA: 222 QRS: -14 QRSD: 110 T: 4 QT: 426 QTc: 415 Interpretive Statements SINUS BRADYCARDIA WITH FIRST DEGREE AV BLOCK POSSIBLE LEFT VENTRICULAR HYPERTROPHY [VOLTAGE CRITERIA PLUS LAE OR QRS WIDENING] Electronically Signed On 11-02-2018 19:58:21 EDT by Josué Chaudhary
== END 2018-11-02 14:15 | disposition home or self-care (01) ==
LOC: 2NENU 22:14 → EMEROOARM 22:14 → SUATTDRO 11-01 00:58 → 2NENU 11-01 01:26
PROVIDERS: ADMIT Internal Medicine; ATTEND Internal Medicine

== ENCOUNTER 2019-01-06 05:36 | Observation (INO) ==
[2019-01-06] MEDS ORDERED: Dexamethasone 10 MG/ML VIAL IVP ONE (06:30)
[2019-01-06] MEDS ORDERED: Ketorolac 15 MG/ML VIAL IVP ONE (07:42)
[2019-01-06] MEDS ORDERED: Isovue-370 500 ML BOTTLE IVP ONE (07:43)
[2019-01-06 07:58] LABS: Basophils % 0.2 %; Eosinophils # 0.2 K/mcL (0.0-0.6); Eosinophils % 2.1 %; Hematocrit 42.3 % (37.5-50.1); Hemoglobin 15.6 g/dL (12.9-16.9); Immature Granulocytes % 0.2 % (0-4); Lymphocytes # 0.6 K/mcL (0.6-4.6); Lymphocytes % 7.1 %; Mean Corpuscular HGB Conc 36.9 g/dL (31.6-35.5); Mean Corpuscular Hemoglobin 34.1 pg (28.0-33.3); Mean Corpuscular Volume 92.6 fL (83.0-100.0); Mean Platelet Volume 10.4 fL (9.4-12.4); Monocytes # 0.5 K/mcL (0.0-1.3); Platelet Count 147 K/mcL (140-400); Red Blood Count 4.57 M/mcL (4.19-5.50); Red Cell Distribution Width 12.1 % (11.5-14.5); Segmented Neutrophils % 84.4 %; White Blood Count 8.3 K/mcL (4.3-11.1)
[2019-01-06 08:11] LABS: Alanine Aminotransferase 19 Units/L (7-52); Albumin 3.9 g/dL (3.5-5.7); Albumin/Globulin Ratio 1.3 (1.1-2.2); Alkaline Phosphatase 73 Units/L (34-104); Aspartate Amino Transferase 19 Units/L (13-39); BUN/Creatinine Ratio 13 (6-26); Bilirubin,Total 1.8 mg/dL (0.3-1.0); Blood Urea Nitrogen 12 mg/dL (8-23); Calcium 9.1 mg/dL (8.6-10.3); Carbon Dioxide 26 mEq/L (23-29); Chloride 102 mEq/L (98-107); Globulin 3.1 g/dL (2.4-3.5); Glucose 210 mg/dL (70-105); Osmolality,Calculated 288 (280-300); Potassium 3.8 mEq/L (3.5-5.1); Sodium 136 mEq/L (136-145); eGFR For African Americans > 60 (> 60); eGFR For Non-African Americans > 60 (> 60)
[2019-01-06] MEDS ORDERED: Ampicillin/Sulbactam 1,500 MG in 0.9 % Sodium Chloride Mini Bag 100 ML IVPB ONE (08:28)
[2019-01-06] MEDS ORDERED: Morphine Sulfate 2 MG/ML SYRINGE IVP ONE (09:16)
[2019-01-06] MEDS ORDERED: Naloxone 0.4 MG/ML INJ IVP PRN (10:17)
[2019-01-06] MEDS ORDERED: Ondansetron 4 MG/2 ML VIAL IVP PRN (10:17)
[2019-01-06] MEDS ORDERED: D5% in Water 1,000 ML IVC PRN (10:18)
[2019-01-06] MEDS ORDERED: Dextrose Gel 15 GM/37.5 ML TUBE PO PRN ×2 (10:18)
[2019-01-06] MEDS ORDERED: *HR* Dextrose 50 % in Water (Syg) 50 ML SYRINGE IVP PRN (10:18)
[2019-01-06] MEDS ORDERED: Ampicillin/Sulbactam 3,000 MG in 0.9 % Sodium Chloride Mini Bag 100 ML IVPB SCH ×2 (12:00→13:00)
[2019-01-06] MEDS: 0.9 % Sodium Chloride 1,000 ML IVC SCH (12:43)
[2019-01-06] MEDS: Insulin LISPRO 300 UNITS/3 ML VIAL SQ SCH ×2 (12:44→15:52)
[2019-01-06] MEDS: Stomatitis Mixture 5 ML UDC PO SCH ×3 (15:51→20:14)
[2019-01-06] MEDS: methylPREDNISolone 125 MG/2 ML VIAL IVP SCH ×2 (15:52→23:13)
[2019-01-06] MEDS: Chloraseptic Spray 177 ML BOTTLE MM PRN ×2 (15:53→23:21)
[2019-01-06] MEDS ORDERED: *HR* Heparin 5,000 UNIT/ML VIAL SQ SCH (18:00)
[2019-01-06] MEDS: Famotidine 20 MG/2 ML VIAL IVP SCH (18:04)
[2019-01-06] MEDS: Ampicillin/Sulbactam 3,000 MG in 0.9 % Sodium Chloride Mini Bag 100 ML IVPB SCH ×2 (18:09→23:12)
[2019-01-06] MEDS: Ketorolac 15 MG/ML VIAL IVP PRN (20:14)
[2019-01-06] MEDS ORDERED: Insulin LISPRO 300 UNITS/3 ML VIAL SQ SCH (21:00)
[2019-01-07 02:26] LABS: Basophils % 0.1 %; Hematocrit 41.7 % (37.5-50.1); Hemoglobin 15.1 g/dL (12.9-16.9); Immature Granulocytes % 0.6 % (0-4); Lymphocytes # 0.6 K/mcL (0.6-4.6); Lymphocytes % 6.2 %; Mean Corpuscular HGB Conc 36.2 g/dL (31.6-35.5); Mean Corpuscular Hemoglobin 33.6 pg (28.0-33.3); Mean Corpuscular Volume 92.9 fL (83.0-100.0); Mean Platelet Volume 10.8 fL (9.4-12.4); Monocytes # 0.3 K/mcL (0.0-1.3); Monocytes % 2.8 %; Neutrophils # 9.2 K/mcL (1.6-8.9); Platelet Count 144 K/mcL (140-400); Red Blood Count 4.49 M/mcL (4.19-5.50); Segmented Neutrophils % 90.3 %; White Blood Count 10.1 K/mcL (4.3-11.1)
[2019-01-07 02:46] LABS: BUN/Creatinine Ratio 16 (6-26); Blood Urea Nitrogen 15 mg/dL (8-23); Carbon Dioxide 25 mEq/L (23-29); Chloride 102 mEq/L (98-107); Glucose 288 mg/dL (70-105); Magnesium 1.5 mg/dL (1.6-2.6); Osmolality,Calculated 293 (280-300); Potassium 3.8 mEq/L (3.5-5.1); Sodium 136 mEq/L (136-145); eGFR For African Americans > 60 (> 60); eGFR For Non-African Americans > 60 (> 60)
[2019-01-07] MEDS: Ketorolac 15 MG/ML VIAL IVP PRN (03:04)
[2019-01-07] MEDS: 0.9 % Sodium Chloride 1,000 ML IVC SCH (03:05)
[2019-01-07] MEDS: Ampicillin/Sulbactam 3,000 MG in 0.9 % Sodium Chloride Mini Bag 100 ML IVPB SCH ×2 (05:12→12:25)
[2019-01-07] MEDS: Famotidine 20 MG/2 ML VIAL IVP SCH (05:12)
[2019-01-07] MEDS: methylPREDNISolone 125 MG/2 ML VIAL IVP SCH (07:39)
[2019-01-07] MEDS: Insulin LISPRO 300 UNITS/3 ML VIAL SQ SCH ×2 (07:56→12:29)
[2019-01-07] MEDS: Chloraseptic Spray 177 ML BOTTLE MM PRN (09:04)
[2019-01-07] MEDS: Stomatitis Mixture 5 ML UDC PO SCH ×2 (09:54→12:24)
[2019-01-07 11:33] VITALS: BP 144/80
[2019-01-08] MEDS ORDERED: predniSONE 20 MG TABLET PO SCH (12:43)
== END 2019-01-07 15:37 | disposition home or self-care (01) ==
LOC: EMEROOARM 05:36 → 2ANU 05:36 → SUATTDRO 10:21 → 2ANU 11:17
PROVIDERS: ADMIT Internal Medicine; ATTEND Family Medicine

== ENCOUNTER 2020-11-21 17:16 | Observation (INO) ==
[2020-11-21] MEDS ORDERED: 0.9 % Sodium Chloride 500 ML IVC ONE (18:22)
[2020-11-21 18:31] LABS: Basophils % 0.8 %; Eosinophils # 0.3 K/mcL (0.0-0.6); Eosinophils % 5.8 %; Hematocrit 42.8 % (37.5-50.1); Hemoglobin 14.6 g/dL (12.9-16.9); Immature Granulocytes % 0.2 % (0-4); Lymphocytes # 1.7 K/mcL (0.6-4.6); Lymphocytes % 34.6 %; Mean Corpuscular HGB Conc 34.1 g/dL (31.6-35.5); Mean Corpuscular Hemoglobin 32.7 pg (28.0-33.3); Mean Corpuscular Volume 95.7 fL (83.0-100.0); Mean Platelet Volume 10.9 fL (9.4-12.4); Monocytes # 0.4 K/mcL (0.0-1.3); Monocytes % 9.2 %; Neutrophils # 2.4 K/mcL (1.6-8.9); Platelet Count 149 K/mcL (140-400); Red Blood Count 4.47 M/mcL (4.19-5.50); Red Cell Distribution Width 12.5 % (11.5-14.5); Segmented Neutrophils % 49.4 %; White Blood Count 4.8 K/mcL (4.3-11.1)
[2020-11-21 18:53] LABS: BUN/Creatinine Ratio 13 (6-26); Blood Urea Nitrogen 12 mg/dL (8-23); Calcium 9.2 mg/dL (8.6-10.3); Carbon Dioxide 26 mEq/L (23-29); Chloride 105 mEq/L (98-107); Glucose 116 mg/dL (70-105); Osmolality,Calculated 289 (280-300); Potassium 3.7 mEq/L (3.5-5.1); Sodium 139 mEq/L (136-145); eGFR For African Americans > 60 (> 60); eGFR For Non-African Americans > 60 (> 60)
[2020-11-21 18:54] LABS: Troponin I < 0.03 ng/mL (< 0.04)
[2020-11-21 19:15] LABS: INR 1.1; Prothrombin Time 12.2 Seconds (9.4-12.1)
[2020-11-21 19:17] LABS: Activated Partial Thrombo Time 29.8 Seconds (26.0-36.0)
[2020-11-21 20:16] LABS: Influenza A PCR Negative (Negative); Influenza B PCR Negative (Negative); Resp. Syncytial Virus PCR Negative (Negative)
[2020-11-21 20:17] LABS: SARS-CoV-2 by PCR (In House) Negative (Negative)
[2020-11-21 21:22] LABS: Bacteria,Urine Few per hpf (None-Few); Bilirubin,Urine Negative (Negative); Blood,Urine Negative (Negative); Clarity,Urine Clear (Clear); Color,Urine Light-Yellow (Yellow); Glucose,Urine (UA) Normal (Normal); Ketones,Urine Negative (Negative); Leukocyte Esterase,Urine Moderate (Negative); Nitrite,Urine Negative (Negative); PH,Urine 6.5 pH Units (5.0-8.0); Protein,Urine Negative (Neg-Trace); Specific Gravity,Urine 1.012 (1.010-1.025); Urobilinogen,Urine Normal (Normal); WBC,Urine 15-30 per hpf (0-3)
[2020-11-21 21:30] LABS: Amphetamine Screen,Urine Negative ng/mL (Cutoff=1000); Barbiturate Screen,Urine Negative ng/mL (Cutoff=200); Benzodiazepines Screen,Urine Negative ng/mL (Cutoff=200); Cannabinoid Screen,Urine Negative ng/mL (Cutoff = 50); Cocaine Screen,Urine Negative ng/mL (Cutoff= 300); Opiate Screen,Urine Negative ng/mL (Cutoff=300); Phencyclidine Screen,Urine Negative ng/mL (Cutoff=25)
[2020-11-21 21:31] LABS: Estimated Average Glucose 192 mg/dl; Hemoglobin A1C 8.3 %
[2020-11-21] MEDS ORDERED: Naloxone 0.4 MG/ML INJ IVP PRN (22:18)
[2020-11-21] MEDS ORDERED: Melatonin 3 MG TABLET PO PRN (22:18)
[2020-11-21] MEDS ORDERED: Ondansetron 4 MG/2 ML VIAL IVP PRN (22:18)
[2020-11-21] MEDS: 0.9 % Sodium Chloride 1,000 ML IVC SCH (23:10)
[2020-11-21] MEDS: Acetaminophen 325 MG TABLET PO PRN (23:10)
[2020-11-22] MEDS ORDERED: Nitroglycerin 0.4 MG TAB.SUBL SL PRN (02:31)
[2020-11-22] MEDS ORDERED: *HR* Dextrose 50 % in Water (Syg) 50 ML SYRINGE IVP PRN (02:34)
[2020-11-22] MEDS ORDERED: D5% in Water 1,000 ML IVC PRN (02:34)
[2020-11-22] MEDS ORDERED: Dextrose Gel 15 GM/37.5 ML TUBE PO PRN ×2 (02:34)
[2020-11-22 02:50] LABS: Eosinophils # 0.2 K/mcL (0.0-0.6); Eosinophils % 4.8 %; Hemoglobin 13.5 g/dL (12.9-16.9); Immature Granulocytes % 0.2 % (0-4); Mean Corpuscular Hemoglobin 32.5 pg (28.0-33.3); Mean Corpuscular Volume 96.9 fL (83.0-100.0); Mean Platelet Volume 10.6 fL (9.4-12.4); Red Cell Distribution Width 12.5 % (11.5-14.5); White Blood Count 4.4 K/mcL (4.3-11.1)
[2020-11-22 02:53] LABS: Basophils % 0.7 %; Hematocrit 40.3 % (37.5-50.1); Immature Platelets 4.1 % (1.1-6.1); Lymphocytes # 1.6 K/mcL (0.6-4.6); Lymphocytes % 36.1 %; Mean Corpuscular HGB Conc 33.5 g/dL (31.6-35.5); Monocytes # 0.4 K/mcL (0.0-1.3); Monocytes % 9.5 %; Platelet Count 120 K/mcL (140-400); Red Blood Count 4.16 M/mcL (4.19-5.50); Segmented Neutrophils % 48.7 %
[2020-11-22 02:59] LABS: Neutrophils # 2.1 K/mcL (1.6-8.9)
[2020-11-22 03:10] LABS: Alanine Aminotransferase 17 Units/L (7-52); Albumin 3.5 g/dL (3.5-5.7); Albumin/Globulin Ratio 1.3 (1.1-2.2); Alkaline Phosphatase 54 Units/L (34-104); Aspartate Amino Transferase 21 Units/L (13-39); BUN/Creatinine Ratio 14 (6-26); Bilirubin,Total 1.7 mg/dL (0.3-1.0); Blood Urea Nitrogen 13 mg/dL (8-23); Calcium 8.5 mg/dL (8.6-10.3); Carbon Dioxide 26 mEq/L (23-29); Chloride 106 mEq/L (98-107); Globulin 2.6 g/dL (2.4-3.5); Glucose 187 mg/dL (70-105); Magnesium 1.7 mg/dL (1.6-2.6); Osmolality,Calculated 293 (280-300); Phosphorous 3.1 mg/dL (2.7-4.5); Potassium 3.6 mEq/L (3.5-5.1); Sodium 139 mEq/L (136-145); Total Protein 6.1 g/dL (6.4-8.9); eGFR For African Americans > 60 (> 60); eGFR For Non-African Americans > 60 (> 60)
[2020-11-22 03:12] LABS: Troponin I < 0.03 ng/mL (< 0.04)
[2020-11-22] MEDS: *HR* Heparin 5,000 UNIT/ML VIAL SQ SCH ×2 (05:18→18:12)
[2020-11-22] MEDS ORDERED: Insulin LISPRO 300 UNITS/3 ML VIAL SUBQ SCH ×2 (06:00→21:00)
[2020-11-22] MEDS ORDERED: Regadenoson 0.4 MG/5 ML SYRINGE IVP ONE (07:34)
[2020-11-22] MEDS: Acetaminophen 325 MG TABLET PO PRN (10:25)
[2020-11-22] MEDS: Isosorbide MONOnitrate (24 HR) 30 MG TAB.ER.24H PO SCH (13:46)
[2020-11-22] MEDS: Insulin LISPRO 300 UNITS/3 ML VIAL SUBQ SCH (17:52)
[2020-11-23 02:44] VITALS: O2SAT 95
[2020-11-23 05:51] LABS: Chol/HDL Ratio 3.9 (0-4.9)
[2020-11-23] MEDS: Acetaminophen 325 MG TABLET PO PRN ×2 (06:34)
[2020-11-23] MEDS: *HR* Heparin 5,000 UNIT/ML VIAL SQ SCH (06:35)
[2020-11-23 06:48] VITALS: BP 136/72; PULSE 64; TEMP 97.6
[2020-11-23] MEDS: Insulin LISPRO 300 UNITS/3 ML VIAL SUBQ SCH ×3 (08:36→13:49)
[2020-11-23] MEDS: Isosorbide MONOnitrate (24 HR) 30 MG TAB.ER.24H PO SCH (09:49)
== END 2020-11-23 14:00 | disposition home or self-care (01) ==
LOC: EMEROOARM 17:16 → 3BNU 17:16 → SUATTDRO 21:08 → 3BNU 22:07
PROVIDERS: ADMIT Family Medicine; ATTEND Registered Nurse

== ENCOUNTER 2021-12-08 13:51 | Observation (INO) ==
[2021-12-08] MEDS ORDERED: 0.9 % Sodium Chloride 1,000 ML IVC ONE (14:11)
[2021-12-08] MEDS ORDERED: Iopamidol - 370 500 ML MLS IVP ONE (14:16)
[2021-12-08 14:44] LABS: Basophils % 0.4 %; Eosinophils # 0.1 K/mcL (0.0-0.6); Eosinophils % 0.7 %; Hematocrit 45.2 % (37.5-50.1); Hemoglobin 15.5 g/dL (12.9-16.9); Immature Granulocytes % 0.5 % (0-4); Lymphocytes # 1.1 K/mcL (0.6-4.6); Lymphocytes % 13.3 %; Mean Corpuscular HGB Conc 34.3 g/dL (31.6-35.5); Mean Corpuscular Hemoglobin 32.3 pg (28.0-33.3); Mean Corpuscular Volume 94.2 fL (83.0-100.0); Mean Platelet Volume 10.5 fL (9.4-12.4); Monocytes # 0.5 K/mcL (0.0-1.3); Neutrophils # 6.6 K/mcL (1.6-8.9); Platelet Count 148 K/mcL (140-400); Red Cell Distribution Width 12.3 % (11.5-14.5); Segmented Neutrophils % 79.1 %; White Blood Count 8.3 K/mcL (4.3-11.1)
[2021-12-08 14:52] LABS: INR 1.2; Prothrombin Time 13.1 Seconds (9.4-12.1)
[2021-12-08 14:55] LABS: Activated Partial Thrombo Time 28.2 Seconds (26.0-36.0)
[2021-12-08 15:16] LABS: BUN/Creatinine Ratio 11 (6-26); Blood Urea Nitrogen 15 mg/dL (8-23); Carbon Dioxide 24 mEq/L (23-29); Chloride 103 mEq/L (98-107); Glucose 227 mg/dL (70-105); Potassium 4.1 mEq/L (3.5-5.1); Sodium 136 mEq/L (136-145)
[2021-12-08 15:17] LABS: Alanine Aminotransferase 23 Units/L (7-52); Albumin/Globulin Ratio 1.2 (1.1-2.2); Alkaline Phosphatase 67 Units/L (34-104); Aspartate Amino Transferase 24 Units/L (13-39); Bilirubin,Direct 0.2 mg/dL (0.0-0.2); Bilirubin,Indirect 1.7 mg/dL (0.0-1.0); Bilirubin,Total 1.9 mg/dL (0.3-1.0); Calcium 9.4 mg/dL (8.6-10.3); Ethanol < 10 mg/dL (Less than 10); Globulin 3.4 g/dL (2.4-3.5); Osmolality,Calculated 290 (280-300); Total Protein 7.4 g/dL (6.4-8.9); Troponin I < 0.03 ng/mL (< 0.04)
[2021-12-08 17:03] LABS: Bilirubin,Urine Negative (Negative); Blood,Urine Negative (Negative); Clarity,Urine Clear (Clear); Color,Urine Light-Yellow (Yellow); Glucose,Urine (UA) 30 mg/dL (Normal); Hyaline Casts,Urine Moderate per lpf (None Seen); Ketones,Urine Negative (Negative); Leukocyte Esterase,Urine Negative (Negative); Mucus,Urine Few per lpf (None-Few); Nitrite,Urine Negative (Negative); PH,Urine 6.5 pH Units (5.0-8.0); Protein,Urine Trace mg/dL (Neg-Trace); RBC,Urine 0-3 per hpf (0-3); Specific Gravity,Urine > 1.030 (1.010-1.025); Urobilinogen,Urine Normal (Normal); WBC,Urine 0-3 per hpf (0-3)
[2021-12-08 17:10] LABS: Amphetamine Screen,Urine Negative ng/mL (Cutoff=1000); Barbiturate Screen,Urine Negative ng/mL (Cutoff=200); Benzodiazepines Screen,Urine Negative ng/mL (Cutoff=200); Cannabinoid Screen,Urine Negative ng/mL (Cutoff = 50); Cocaine Screen,Urine Negative ng/mL (Cutoff= 300); Opiate Screen,Urine Negative ng/mL (Cutoff=300); Phencyclidine Screen,Urine Negative ng/mL (Cutoff=25)
[2021-12-08] MEDS ORDERED: Dextrose Gel 15 GM/37.5 ML TUBE PO PRN ×2 (17:12)
[2021-12-08] MEDS ORDERED: D5% in Water 1,000 ML IVC PRN (17:12)
[2021-12-08] MEDS ORDERED: *HR* Dextrose 50 % in Water (Syg) 50 ML SYRINGE IVP PRN (17:12)
[2021-12-09 02:43] LABS: Albumin 3.6 g/dL (3.5-5.7); Albumin/Globulin Ratio 1.2 (1.1-2.2); Bilirubin,Total 1.7 mg/dL (0.3-1.0); Calcium 8.7 mg/dL (8.6-10.3); Chol/HDL Ratio 4.2 (0-4.9); Potassium 3.6 mEq/L (3.5-5.1); Total Protein 6.6 g/dL (6.4-8.9)
[2021-12-09 03:16] LABS: Estimated Average Glucose 192 mg/dl; Hemoglobin A1C 8.3 %
[2021-12-09] MEDS ORDERED: *HR* Enoxaparin 40 MG/0.4 ML SYRINGE SQ SCH (06:00)
[2021-12-09] MEDS ORDERED: Isosorbide MONOnitrate (24 HR) 30 MG TAB.ER.24H PO SCH (09:00)
[2021-12-09] MEDS ORDERED: Aspirin Enteric Coated 81 MG Tablet PO SCH (09:00)
[2021-12-09] MEDS ORDERED: Famotidine 20 MG TABLET PO SCH (09:00)
[2021-12-09] MEDS ORDERED: Magnesium Oxide 400 MG TABLET PO SCH (09:00)
[2021-12-09] MEDS ORDERED: Aspirin 325 MG TABLET PO SCH (09:00)
[2021-12-09] MEDS: Gabapentin 300 MG CAPSULE PO SCH ×2 (09:31→14:58)
[2021-12-09] MEDS: Insulin LISPRO 300 UNITS/3 ML VIAL SUBQ SCH ×3 (09:46→16:50)
[2021-12-09 16:04] VITALS: BP 127/64; PULSE 68; TEMP 97.6; O2SAT 95
== END 2021-12-09 18:47 | disposition home or self-care (01) ==
LOC: EMEROOARM 13:51 → 3BNU 13:51 → SUATTDRO 17:28 → 3BNU 19:00
PROVIDERS: ADMIT Internal Medicine; ATTEND Nurse Practitioner